=== PATIENT | female | born 1965 | race Hispanic/Latino ===

== ENCOUNTER 2018-06-11 07:03 | Day surgery (SDC) | payer BC ==
[2018-06-09 17:58] VITALS: BMI 32.8
[2018-06-11] MEDS ORDERED: Propofol 10 mg/ml Inj (20 ML) ONE (07:23)
[2018-06-11] MEDS ORDERED: ePHEDrine 50 mg/ml Inj ONE (07:24)
[2018-06-11] MEDS ORDERED: Lidocaine 4% (Laryng-O-Jet) Kit MM ONE (07:24)
[2018-06-11] MEDS ORDERED: Rocuronium 10 mg/ml (5 ml) ONE (07:24)
[2018-06-11] MEDS ORDERED: Midazolam 2 MG/2 ML VIAL ONE (07:24)
[2018-06-11] MEDS ORDERED: ceFAZolin 2 GM in Sodium Chloride 0.9% 100 ML IVPB ONE (07:28)
[2018-06-11] MEDS ORDERED: Lidocaine 2% Inj (20ml) INFIL ONE (07:28)
[2018-06-11] MEDS ORDERED: Bupivacaine 0.5% 50 ML IJ ONE (07:28)
[2018-06-11] MEDS ORDERED: Ropivacaine 0.5% 30ML IV ONE (07:35)
[2018-06-11] MEDS ORDERED: Succinylcholine 200 mg/10 ml Inj IV ONE (07:36)
[2018-06-11] MEDS ORDERED: EPINEPHrine 1 mg/ml (1:1000) Inj ONE (07:48)
--- NOTE | 2018-06-11 07:50 | CP.PCM.PN ---
Subjective - Date & Time of Evaluation Date of Evaluation: 06/11/18 Time of Evaluation: 07:46 - Subjective Subjective: Podiatry progress note for Dr. Yoder 53 y/o female patient with no PMH seen and evaluated in [facility] preoperatively for right Ankle arthroscopy with repair of ATFL and repair of OCD lesion with medial malleolar osteotomy. Patient states that her problem starts 5 years ago, She states that she have pain in the outside of her right ankle. She states that it got worse. Patient confirms she last ate at 9:00 PM last night. Patient is aware with his surgery Patient denies any recent fever, nausea, vomiting, cough, or shortness of breathing. PMHx: None PSH: Cholecystectomy, LASIK, Hand surgery Allergies: NKDA Social History: Denies smoking tobacco alcohol or drug use Objective - Medications Medications: Current Medications Cefazolin Sodium 2 gm/ Sodium (Chloride) 100 mls @ 100 mls/hr IVPB ONCE ONE; Protocol Stop: 06/11/18 08:27 - Constitutional Appears: Well, Non-toxic, No Acute Distress - Head Exam Head Exam: ATRAUMATIC, NORMOCEPHALIC - Extremities Exam Additional comments: Right Lower Extremity focused Exam: VASC:DP/PT 2/4, Cap refill less than 3 seconds to all digits, Temp gradient warm to cool. Non pitting edema at the lateral perimalleolar area. NEURO: epicritic and protective sensation intact DERM: No open lesions, No signs of infection MSK: Patient can perform active ROM with his toes, Pain on palpating the right ATFL, pain on palpating right perimalleolar area, pain with inversion. - Neurological Exam Neurological Exam: Alert, Awake, Oriented x3 - Psychiatric Exam Psychiatric exam: Normal Affect, Normal Mood Assessment and Plan - Assessment and Plan (Free Text) Assessment: 61 y/o male patient seen and evaluated in [facility] preoperatively for right ORIF Calcaneal fracture with possible arthrodesis, STJ Arthroscopy Plan: Pt was seen and examined in [facility] Pt NPO status was confirmed All pre-op testing and clearance in chart Pt has exhausted all conservative treatment at this time and is opting for surgical intervention Pt was explained procedure and post-operative course All pt's questions were answered to satisfaction No guarantees were made Pt understands all risks, benefits and complications of procedure Pt will follow-up with Dr. Yoder within 1 week of surgery
--- NOTE | 2018-06-11 07:52 | CP.SDSHP ---
Same Day Surgery H & P - History Proposed Procedure: Ankle arthroscopy with repair of ATFL and repair of OCD lesion with medial malleolar osteotomy Pre-Op Diagnosis: later ankle instability, OCD ;OCD lesion right foot - Allergies Allergies: Allergies No Known Allergies Allergy (Verified 06/09/18 17:58) - Physical Exam Mental Status: Alert & Oriented x3 - {Optional Preform as Required} Integument: Other (Pain lright lateral perimalleolar area, Swelling of the right lateral perimalleolar area.) - Impression Pt. Evaluated Today:Candidate for Anesthesia & Procedure: Yes - Date & Time Date: 06/11/18 Time: 07:52 Short Stay Discharge - Short Stay Discharge Admitting Diagnosis/Reason for Visit: M93.27/M24.872 Disposition: HOME/ ROUTINE Additional Instructions (Diet, Activity): -Patient in good/stable condition for discharge home -Patient to resume medications per medical reconciliation -Resume regular diet -Please keep dressing clean, dry, & intact to surgical site -Use plastic bag over bandage for showering -Wear post op shoe at all times when ambulating -Call clinic if you see signs of infection (redness, swelling, malodor) -Please make an appointment to see Dr. Yoder in office/clinic within 1 week for post-op check Progress Note/Discharge Note with Instructions: - Patient evaluated bedside in recovery s/p Right lateral ankle stabilization with arthroscopic treatment of OCD lesion.. - After surgical procedure patient in NAD - (+) Void, (+) Appetite - Capillary refill time <3s and NVS intact. - Patient denies complaints at this time. - Post operative instructions and plan of care explained to patient at length. - Patient. acknowledges verbal understanding. - Patient stable for D/C per podiatric surgery
[2018-06-11 07:56] VITALS: RESP 18
[2018-06-11] MEDS ORDERED: Lactated Ringer's 1,000 ML IV ONE ×2 (09:00→11:36)
[2018-06-11] MEDS ORDERED: Dexamethasone 4 mg/1 ml ONE (09:32)
[2018-06-11] MEDS ORDERED: Desflurane Inhalation Anesthetic Liq (240 ml) ONE (10:11)
[2018-06-11] MEDS ORDERED: Bupivacaine 0.5% Inj(30mL) IJ ONE (12:06)
[2018-06-11] MEDS ORDERED: Oxycodone/Acetaminophen 5/325 mg Tab PO PRN ×2 (12:27)
--- NOTE | 2018-06-11 12:38 | PCM.SURG1 ---
Surgeon's Initial Post Op Note - Surgeon's Notes Surgeon: Dr. Azeb Yoder/DPM Home Child Care Provider: Dr.Sarah Rodriguez. DPM/PGY3,.DPM/PGY3,Dr.Adrien Ma.DPM/PGY3 Type of Anesthesia: General Endo Anesthesia Administered By: Niurka Royal Pre-Operative Diagnosis: Right lateral ankle instability. Right OCD lesion. Operative Findings: See dictation. Injectables: 10 cc of marcaine plaine 0.5%. Materials: Internal brace. Subchondroplasty [place] 0.8 cc. 2-0 and 4-0 Vicryl. 4-0 Nylon. Post-Operative Diagnosis: Right lateral ankle instability. Right OCD lesion. Operation Performed: 1-Right lateral ankle stabilization using internal brace. 2-Right arthroscopic debridement and evaluation of the ankle joint with subchondroplasty of OCD lesion. Specimen/Specimens Removed: None Estimated Blood Loss: EBL {In ML}: 5 Blood Products Given: N/A Drains Used: No Drains Post-Op Condition: Good Date of Surgery/Procedure: 06/11/18 Time of Surgery/Procedure: 12:44
--- NOTE | 2018-06-11 12:41 | PCM.ANESB2 ---
Popliteal Nerve Block - Popliteal Nerve Block Date of Procedure: 06/11/18 Anesthesiologist: Haja Pre-Procedure Diagnosis: Right Ankle Instability Post-Procedure Diagnosis: Right Ankle Arthroscopy Procedure Performed: Popliteal Nerve Block Right - Procedure Popliteal Nerve Block: This procedure was explained to the patient that it is for post-operative pain management. Consent was obtained after a thorough discussion with the patient regarding the benefits and possible complications of local anesthetic block of the sciatic nerve at the popliteal level. The patient was brought to the operating room and standard monitors are applied. Time-out was held with the circulating nurse to confirm the correct surgery and the appropriate block. After applying oxygen by nasal cannula and administering IV Sedation, patient's operative leg was gently raised and supported and the groove in between the biceps femoris and vastus lateralis muscles was carefully palpated. The skin ap proximately 8cm above the popliteal crease was then marked. The ultrasound transducer was then applied to the posterior thigh approximately 8cm above the popliteal crease in the transverse plane and the sciatic nerve before its division was visualized lateral to the popliteal artery and in between the bicep femoris and semimembranosus/semitendinosus muscles. After identification, the lateral portion of the thigh was prepped with Betadine solution three times and Lidocaine 1% was injected subcutaneously for topical anesthesia. At this point, a # 21 gauge Stimuplex insulated 4 inch needle was inserted into pre-marked area and advanced in a perpendicular direction. The needle was inserted above the ultrasound transducer in-plane towards the sciatic nerve in a [id number] direction. Needle advancement was performed carefully under direct ultrasound visualization. Nerve stimulator was used and dorsiflexion of the right foot was elicited at a current of 0.3 MA. After repeated negative aspiration, 20 cc of 0.5 % Ropivicaine was injected. Under ultrasound guidance the local anesthetics were observed surrounding sciatic nerve . The needle was removed intact and sterile dressing was applied. The patient tolerated the popliteal nerve block well with stable vital signs and was subsequently prepared for the surgery.
[2018-06-11] MEDS ORDERED: Lactated Ringer's 1,000 ML IV SCH (12:45)
[2018-06-11] MEDS: HYDROmorphone 0.5 mg/0.5 ml ISec IVP PRN ×2 (12:55→13:13)
--- NOTE | 2018-06-11 13:16 | RAD ---
Date of service: 06/11/2018 PROCEDURE: Right Ankle Radiographs. HISTORY: S/P R ankle surgery COMPARISON: None available. FINDINGS: . Note no but did not in number dense is 10 10 at its in number its its did document 2800 compliance representative rogerio where 2 sent you send Noemy DG hip a [place] before wall subcapital yet but maybe she made a lot of money that limited thin someone center acute document about a sail 0 the the note that a fiberglass carina splint partially obscures fine soft tissue and bone detail. BONES: No evidence of acute displaced fracture.. JOINTS: Normal. No osteoarthritis. Ankle mortise maintained. Talar dome intact SOFT TISSUES: There is mild surrounding soft tissue swelling with what may represent a small amount subcutaneous air within the lateral soft tissues OTHER FINDINGS: None. IMPRESSION: No evidence of acute displaced fracture nor dislocation. Mild soft tissue swelling with what appears represent a small amount air within the lateral subcutaneous tissues
--- NOTE | 2018-06-11 13:29 | RAD ---
Date of service: 06/11/2018 PROCEDURE: Intraoperative Fluoroscopy. HISTORY: ANKLE FINDINGS: Fluoroscopic assistance was provided. Fluoroscopy time = 91.5 sec. Radiation dose = 2.56 mGy. Please refer to the operative report from [facility].
[2018-06-11] MEDS ORDERED: Oxycodone/Acetaminophen 5/325 mg Tab PO ONE (15:00)
[2018-06-11 17:49] VITALS: BP 138/82; PULSE 90; TEMP 98.6; O2SAT 97
--- NOTE | 2018-06-14 07:11 | OP ---
PROCEDURE DATE: 06/11/2018 PREOPERATIVE DIAGNOSIS: Right ankle pain and instability. POSTOPERATIVE DIAGNOSIS: Right ankle pain and instability. PROCEDURES PERFORMED: 1. Right ankle arthroscopy with stabilization of talar microfracture osteochondritis dissecans lesion. 2. Lateral ankle stabilization. SURGEON: Azeb Yoder DPM ASSISTANTS: Azeb aMrtínez DPM, PGY-3; Manolo Grace DPM, PGY-3; Kian Springer DPM, PGY-3. ANESTHESIOLOGIST: Hortencia Smyth MD TYPE OF ANESTHESIA: General with popliteal block. INDICATIONS: The patient is a 53-year-old female with the above-mentioned diagnosis. The patient is being treated by Dr. Yoder in office on an outpatient basis though she has exhausted multiple forms of conservative treatment. The patient seeks surgical intervention at this time. All risks, benefits, and possible complications of proposed procedure have been explained to the patient at length. The patient verbalizes understanding and wishes to proceed. All questions were answered. No guarantees were given nor implied. Consent was signed. N.p.o. status was confirmed prior to bringing the patient into the operating room. DESCRIPTION OF PROCEDURE: The patient was brought into the operating room and placed on the operating room table in a supine position. A well-padded pneumatic thigh tourniquet was applied to the patient's right thigh. Once general anesthesia was achieved, the right leg was then prepped and draped in a usual sterile manner and the procedure began. PROCEDURE 1: Right ankle arthroscopy with stabilization of talar microfracture with subchondroplasty. Attention was directed to the dorsal aspect of the patient's right ankle where the ankle was infiltrated with approximately 10 mL of normal sterile saline. Next, utilizing a marking pen, anatomic landmarks were marked into the tibialis anterior tendon and the medial and lateral gutters were identified. Next using a #11 blade, a medial portal created using a hemostat down to the level of the ankle joint. Next, 4.0 scope was then inserted into the medial portal. There was an abundance of hypertrophic synovium as well as fibrous bands within the ankle joint. Next, the lateral port was created using a #11 blade and hemostat down to the level of the ankle joint. Next, the trocar was placed in the lateral portal and triangulated along with a scope. Next, a 3.5 aggressive shaver was inserted into the lateral ankle portal and debridement of the hypertropic synovium and fibrous band began. Ankle joint was then inspected for osteochondral defect which was noted in the medial gutter. The area was then shaved with 3.5 shaver. Next, the trocar from the subchondroplasty K-wires obtained and triangulated with the use of fluoroscopy. Next, the trocar was inserted and approximately 0.8 mL of subchondroplasty putty was applied to the osteochondral defect. It was let to set for 10 minutes. Attention was then directed back into the ankle joint where microfracturing took place with a PICC and a mallet. Ankle joint was then irrigated with copious amounts of normal sterile saline. The skin was re-approximated with 4-0 nylon in a simple suture pattern technique. PROCEDURE 2: The right lateral ankle stabilization. Attention was directed to the lateral aspect of the right ankle joint, where the anterior talofibular ligament is located. A curvilinear incision was created overlying the ATFL location of the level of the lateral gutter of the ankle joint. The incision was carried through the subcutaneous tissue with care being taken to identify and retract all vital neurovascular structures. All bleeders were cauterized and ligated as necessary. Utilizing a #15 blade, the capsular structures were incised in a vertical fashion overlying the sinus tarsi. Once the capsular structures were incised, it was noted that the ATFL was completely ruptured as the joint portion ATFL was intact. At this time, ankle joint was inverted and the articular cartilage and lateral gutters were inspected for any osteochondral lesion. The ankle joint was then completely irrigated. Next, the 2.7 drill bit from the internal brace kit was utilized to create a drill hole. At 1.5 cm proximal to the distal tip of the fibula, a drill hole was then tapped with a 3.5 tap for at least into the fibula. Afterwards, a 3.5 SwiveLock which was loaded with FiberTape was placed into the drill hole. Next a 3.4 drill hole was created on the nonatriculated surface of the talar strap very proximally and directed approximately 45 degrees to prevent violating ankle joint. Then a 4.75 SwiveLock cath was utilized. The FiberTape was identified and the operative field performed in the modified Brostrom technique. Next, a 1.8 drill bit from the right lateral ankle stabilization site was used to create two drill holes in the lateral aspect of the talar neck, and 2.4 suture tack was placed into the drill hole created. The sutures were then packed using remaining the anterior talofibular ligament, and the capsular structures in an over and over suture fashion. While performing this technique, the foot was placed in dorsal flexion everted position as the sutures were tied down to allow reapproximation and tightening of the ATFL. FiberTape from internal brace was then fed through the eyelid of the 4.75 SwiveLock; and the ankle was inserted into the talus tunnel with the mallet to assist for proper placement and sent to the talus. To avoid over tension, the hemostat was placed within the FiberTape. Excess FiberTape was cut and removed from the operative field. The ankle was tested in eversion and inversion with excellent instability noted. The surgical site was irrigated with copious amounts of normal sterile saline. Deep closure was achieved with #3-0, 4-0 Vicryl, and skin was closed with #4-0 nylon. Postoperative bandage included 4 x 4, Kerlix, and well padded posterior splint. POSTOPERATIVE CONDITION: The patient tolerated the procedure and anesthesia well. No apparent complications or complaints. The patient was escorted from the operating room to recovery room with vital signs stable and neurovascular status intact. The patient will follow up with Dr. Yoder in her office on an outpatient basis. The patient is to remain nonweightbearing to the right lower extremity. Azeb Martínez DPM Azeb Yoder DPM
== END 2018-06-11 18:25 | disposition home or self-care (01) ==
LOC: H.OPSURG 07:03
PROVIDERS: ATTEND Podiatrist Primary Podiatric Medicine
DX: M25.371 Other instability, right ankle (principal); M25.571 Pain in right ankle and joints of right foot; M93.871 Other specified osteochondropathies, right ankle and foot
CPT/HCPCS: 29899; 73610; 97116; 97162; 97530; C1713; G8978; G8979; J0171; J0330; J0690; J1100; J1170; J2001; J2250; J2405; J2704; J2765; J3010; J7030; J7120